=== PATIENT | female | born 1950 | race Caucasian/White ===

== ENCOUNTER → 2017-09-11 14:56 | Outpatient (CLI) | payer MEDICARE, MEDICAID, SELFPAY ==
[2017-09-11 15:20] LABS: Basophils # 0.1 K/mm3 (0-0.2); Basophils % 0.6 % (0.1-2.0); Eosinophils # 0.2 K/mm3 (0.0-0.4); Eosinophils % 1.8 % (0.1-12.0); Hematocrit 45.5 % (37.0-47.0); Hemoglobin 14.2 g/dL (12.2-16.2); Lymphocytes # 2.2 K/mm3 (0.7-4.5); Mean Corpuscular HGB Conc 31.2 g/dL (31.8-35.4); Mean Corpuscular Hemoglobin 30.8 pg (27.0-31.2); Mean Corpuscular Volume 98.5 fl (81-99); Mean Platelet Volume 7.2 fl (7.4-10.4); Monocytes # 0.6 K/mm3 (0.1-1.0); Neutrophils # 6.9 K/mm3 (1.8-7.8); Neutrophils % 69.7 % (37.0-80.0); Platelet Count 215 K/mm3 (142-424); Red Blood Count 4.62 M/mm3 (4.20-5.40); Red Cell Distribution Width 12.8 % (11.5-17.5); White Blood Count 9.9 K/mm3 (4.8-10.8)
--- NOTE | 2017-09-11 15:20 | XR_ITS ---
XR chest 2V HISTORY: ITS.REASON: HTN ORDERING PHYSICIAN: Flip William MD PATIENT AGE: 67 years COMPARISON: 06/22/2012 FINDINGS: Normal heart size. COPD with hyperinflation and hyperlucency. Postsurgical changes right upper lobe. There is some increased density in the right upper lobe medially which could be related to the previous surgery. Calcification is present in the left apex medially there is evidence of old granulomatous disease. There is moderate thoracic scoliosis convex right IMPRESSION: COPD with postsurgical change, no definite acute finding
[2017-09-11 16:12] LABS: Anion Gap 10.9 mEq/L (5-15); Blood Urea Nitrogen 8 mg/dL (7-18); Carbon Dioxide 33 mmol/L (21.0-32.0); Chloride 100 mmol/L (98-107); Creatinine,Serum 0.49 mg/dL (0.55-1.02); Estimated Glomerular Filt Rate 127 ml/min (>60); GFR (African American) 153 ML/MIN (>60); Glucose 94 mg/dL (74-106); Potassium 3.9 mmoL/L (3.5-5.1); Sodium 140 mmol/L (136-145)
== END ==
PROVIDERS: PCP Nurse Practitioner Family; Visit Provider Orthopaedic Surgery
DX: Z01.818 Encounter for other preprocedural examination (principal); S52.531A Colles' fracture of right radius, initial encounter for closed fracture; S52.601A Unspecified fracture of lower end of right ulna, initial encounter for closed fracture
CPT/HCPCS: 36415; 71046; 80048; 85025; 93005

== ENCOUNTER → 2017-09-27 10:39 | Outpatient (CLI) | payer MEDICARE, MEDICAID, SELFPAY ==
--- NOTE | 2017-09-27 10:42 | XR_ITS ---
XR wrist RT min 3V HISTORY follow-up fracture/ORIF ITS.REASON: 2 week post op ORIF RT distal radius ORDERING PHYSICIAN: Flip William MD PATIENT AGE: 67 years COMPARISON: 05/22 and 09/10/2017 FINDINGS: Status post ORIF comminuted distal radial fracture and ulnar fracture. Anterior bone plate is present with multiple screws along with 2 K wires through the ulna into the distal radius. There remains good alignment of fracture fragments. There is a defect in the distal radius dorsally at the fracture site. Fracture lines are still visible. There may be some mild callus formation at the ulnar fracture site. IMPRESSION: IMPRESSION: Good alignment status post ORIF distal radial and ulnar fracture with some developing callus formation at the ulna
== END ==
PROVIDERS: PCP Nurse Practitioner Family; Visit Provider Orthopaedic Surgery
DX: Z48.89 Encounter for other specified surgical aftercare (principal)
CPT/HCPCS: 73110

== ENCOUNTER → 2017-10-11 11:06 | Outpatient (CLI) | payer MEDICARE, MEDICAID, SELFPAY ==
--- NOTE | 2017-10-11 11:12 | XR_ITS ---
XR wrist RT min 3V HISTORY follow-up surgery/ORIF ITS.REASON: s/p right distal radius dos 09/14/17 ORDERING PHYSICIAN: Flip William MD PATIENT AGE: 67 years COMPARISON: 09/27/2017 FINDINGS: Study is obtained through a cast. Anterior bone plate with multiple screws remain in place. 2 K wires are once again noted placed from the medial aspect of the wrist from the distal ulna into the radius. Abundant callus formation is present at the distal radial fracture. Remains good alignment. IMPRESSION: Good alignment status post ORIF radial and ulnar fracture with increasing callus formation
--- NOTE | 2017-10-11 14:59 | XR_ITS ---
XR wrist RT min 3V HISTORY ITS.REASON: postoperative visit/ removal of K wires. ORDERING PHYSICIAN: Flip William MD PATIENT AGE: 67 years COMPARISON: Follow-up fracture and pin removal 10/11/2017 FINDINGS: There has been interval removal of the K wires placed from the ulnar approach. There remains good alignment. Dominant callus formation is present at the ulna. There remains good alignment of the distal radius and ulna with no change in the anterior bone plate. IMPRESSION: Interval removal of 2 K wires good alignment of the ulnar and radial fracture
== END ==
PROVIDERS: PCP Nurse Practitioner Family; Visit Provider Orthopaedic Surgery
DX: Z09 Encounter for follow-up examination after completed treatment for conditions other than malignant neoplasm (principal)
CPT/HCPCS: 73110

== ENCOUNTER → 2017-11-01 13:18 | Outpatient (CLI) | payer MEDICARE, MEDICAID, SELFPAY ==
--- NOTE | 2017-11-01 13:22 | XR_ITS ---
XR wrist RT min 3V HISTORY ITS.REASON: post op, right wrist fx/ out of cast ORDERING PHYSICIAN: Flip William MD PATIENT AGE: 67 years Comparison: 10/11/2017 FINDINGS: Volar bone plate remains in place stabilizing distal radial fracture with good alignment. Fracture line is less visible consistent with healing. Healing distal radial fracture also noted with callus formation nondisplaced. The cast has been removed. IMPRESSION: Healing distal radial and or fracture status post ORIF distal radius
== END ==
PROVIDERS: PCP Nurse Practitioner Family; Visit Provider Orthopaedic Surgery
DX: Z09 Encounter for follow-up examination after completed treatment for conditions other than malignant neoplasm (principal); S52.501D Unspecified fracture of the lower end of right radius, subsequent encounter for closed fracture with routine healing; S52.601D Unspecified fracture of lower end of right ulna, subsequent encounter for closed fracture with routine healing
CPT/HCPCS: 73110

== ENCOUNTER 2017-11-01 13:55 | Outpatient (RCR) | payer MEDICARE, MEDICAID, SELFPAY | END 2017-11-03 15:21 | disposition home or self-care (01) | LOC: OT 13:55 | PROVIDERS: PCP Nurse Practitioner Family; Visit Provider Orthopaedic Surgery | DX: Z09 Encounter for follow-up examination after completed treatment for conditions other than malignant neoplasm (principal) | CPT/HCPCS: 73110; 97760 ==

== ENCOUNTER 2019-04-24 08:30 | Observation (INO) ==
[2019-04-24 08:39] LABS: Microscopic, Urine URINE MICROSCOPIC (MICROSCOPIC)
[2019-04-24 08:41] LABS: Appearance,Urine CLEAR (Clear); Bilirubin,Urine Negative (Negative); Blood, Urine Negative (Negative); Color,Urine YELLOW (Yellow); Glucose,Urine (UA) Negative (Negative); Ketones,Urine TRACE (Negative); Leukocyte Esterase,Urine Negative (Negative); PH,Urine 7.5 (5.0-8.5); Protein,Urine Negative (Negative); Specific Gravity, Urine 1.015 (1.005-1.030); Urobilinogen,Urine 0.2 EU/dl (0.2)
[2019-04-24 08:51] LABS: Amphetamine/Metha Screen,Urine Negative ng/mL (<1000); Barbiturates Screen,Urine Negative ng/mL (<200); Benzodiazepines Screen,Urine Negative ng/mL (<200); Cannabinoid Screen,Urine Negative ng/mL (<50); Cocaine Screen,Urine Negative ng/mL (<300); Methadone Screen,Urine Negative ng/mL (<300); Opiate Screen,Urine Positive ng/mL (<300); Phencyclidine Screen,Urine Negative ng/mL (<25)
[2019-04-24 08:58] LABS: Bacteria,Urine Trace /lpf; Mucus,Urine Trace /lpf; WBC,Urine Occasional #/hpf (0-3)
[2019-04-24 08:59] LABS: Basophils # 0.1 K/mm3 (0-0.2); Basophils % 0.9 % (0.1-2.0); Eosinophils # 0.2 K/mm3 (0.0-0.4); Eosinophils % 1.8 % (0.1-12.0); Hemoglobin 14.3 g/dL (12.2-16.2); Lymphocytes % 12.5 % (10-50); Mean Corpuscular HGB Conc 31.2 g/dL (31.8-35.4); Mean Corpuscular Volume 99.4 fl (81-99); Mean Platelet Volume 7.3 fl (7.4-10.4); Monocytes # 0.5 K/mm3 (0.1-1.0); Monocytes % 5.5 % (1.7-9.3); Neutrophils # 6.6 K/mm3 (1.8-7.8); Neutrophils % 79.3 % (37.0-80.0); Platelet Count 250 K/mm3 (142-424); Red Blood Count 4.63 M/mm3 (4.20-5.40); Red Cell Distribution Width 13.8 % (11.5-17.5); White Blood Count 8.3 K/mm3 (4.8-10.8)
[2019-04-24 09:17] LABS: Alanine Aminotransferase 15 U/L (12-78); Albumin Level 3.6 gm/dL (3.4-5.0); Albumin/Globulin Ratio 0.9 (1.1-1.8); Alkaline Phosphatase 112 U/L (46-116); Anion Gap 10.3 mEq/L (5-15); Aspartate Amino Transferase 29 U/L (15-37); Bilirubin,Total 0.5 mg/dL (0.2-1.0); Blood Urea Nitrogen 12 mg/dL (7-18); Calcium 9.4 mg/dL (8.5-10.1); Carbon Dioxide 31 mmol/L (21.0-32.0); Chloride 101 mmol/L (98-107); Glucose 92 mg/dL (74-106); Salicylate 0.6 mg/dL (2.8-20.0); Sodium 139 mmol/L (136-145); Total Protein,Serum 7.6 gm/dL (6.4-8.2)
[2019-04-24 09:36] LABS: Acetaminophen 0 ug/mL (10-30)
[2019-04-24 09:37] LABS: Ethyl Alcohol < 3 mg/dL (0-99)
--- NOTE | 2019-04-24 10:22 | Emergency Department Note ---
ED Disposition Clinical Impression: Acute delirium COPD (chronic obstructive pulmonary disease) Qualifiers: COPD type: unspecified COPD Qualified Code(s): J44.9 - Chronic obstructive pulmonary disease, unspecified Disposition: Admitted as Observation Condition on Discharge: Fair Instructions: DI for Altered Mental Status Referrals: Provider,Referral, [Primary Care Provider] - - Critical Care Critical Care Time: No Attestation: On 04/24/19, the high probability of a clinically significant, sudden or life threatening deterioration of the following system(s) required my full and direct attention, intervention and personal management. The time I documented below is in addition to time spent performing reported procedures but includes the following listed in this critical care notation. Medical Decision Making - Medical Records Medical records reviewed: Yes: I reviewed the patient's medical records. - Hang Inquiry Pt receiving controlled substance: No Vital Signs: 04/24/19 08:38 04/24/19 10:20 Temperature 98.7 F Temperature Source Rectal Pulse Rate [Right] 80 74 Respiratory Rate 18 Blood Pressure [Right Arm] 160/98 H 189/78 H Blood Pressure Mean [Right Arm] 118 115 Blood Pressure Source [Right Arm] Automatic Cuff Blood Pressure Position [Right Arm] Sitting Sitting 02 Sat by Pulse Oximetry 95 95 Oxygen Delivery Method Room Air Room Air - Lab Data Lab results reviewed: Yes: I reviewed the patient's lab results. Lab Results 04/24/19 08:30: Urine Color Yellow, Urine Appearance Clear, Urine pH 7.5, Ur Specific [place] 1.015, Urine Protein Negative, Urine Glucose (UA) Negative, Urine Ketones Trace, Urine Blood Negative, Urine Nitrate Negative, Urine Bilirubin Negative, Urine Urobilinogen 0.2, Ur Leukocyte Esterase Negative, Urine WBC Occasional, Ur Squamous Epith Cells 3-5, Urine Bacteria Trace, Urine Mucus Trace 04/24/19 08:30: Urine Opiates Screen Positive H, Urine Methadone Screen Negative, Ur Barbituates Screen Negative, Ur Phencyclidine Scrn Negative, Ur Amphetamines Screen Negative, U Benzodiazepines Scrn Negative, Urine Cocaine Screen Negative, U Marijuana (THC) Screen Negative 04/24/19 08:46: WBC 8.3, RBC 4.63, Hgb 14.3, Hct 46.0, MCV 99.4 H, MCH 31.0, MCHC 31.2 L, RDW 13.8, Plt Count 250, MPV 7.3 L, Neut % (Auto) 79.3, Lymph % (Auto) 12.5, [place] % (Auto) 5.5, Eos % (Auto) 1.8, Baso % (Auto) 0.9, Neut # (Auto) 6.6, Lymph # (Auto) 1.0, [place] # (Auto) 0.5, Eos # (Auto) 0.2, Baso # (Auto) 0.1 04/24/19 08:46: Sodium 139, Potassium 3.3 L, Chloride 101, Carbon Dioxide 31, Anion Gap 10.3, BUN 12, Creatinine 0.48 L, Estimated Creat Clear 35, Estimated GFR 129, Est GFR ( Amer) 156, Glucose 92, Calcium 9.4, Total Bilirubin 0.5, AST 29, ALT 15, Alkaline Phosphatase 112, Troponin I < 0.02, Total Protein 7.6, Albumin 3.6, Globulin 4.0 H, Albumin/Globulin Ratio 0.9 L, Salicylates 0.6 L, Acetaminophen 0 L, Plasma/Serum Alcohol < 3 04/24/19 08:46: Lactate 0.6 04/24/19 10:30: Specimen Source R radial, O2 % Room air, ABG pH 7.43, ABG pCO2 47.9 H, ABG pO2 66.8 L, ABG HCO3 30.9 H, ABG Total CO2 32.3 H, ABG O2 Saturation 93, ABG Base Excess 6.5 H, Coleman Test Acceptable Result diagrams: 04/24/19 08:46 04/24/19 08:46 Orders (Tests/Meds): ORDERS Category Date Time Status Blood Culture Stat Micro 04/24/19 08:46 Received - Radiology Data #1 Image(s): Chest Image Reviewed: Yes I reviewed the patient's radiology image Preliminary Findings: Normal/NAD - CT Data CT Scan: Head Time Received: 11:[address] Reviewed: Yes: I have viewed the radiologist's interpretation Preliminary Findings: Abnormal - ECG Data Tracing #1 Normal Sinus Rhythm: Yes Ischemic changes: non-specific ST-T wave changes - Physician Consults Physician Consulted: alen Reason -: Admission Altered Mental Status HPI - General Chief Complaint: Altered Mental Status Stated Complaint: Neighbors reported pt was severely confused Time Seen by Provider: 04/24/19 08:50 Mode of Arrival: EMS Source of Information: Patient, EMS, Medical Record Limitations: Altered Mental Status Description of Symptoms (Recalled from ER Triage Doc. by RN): EMS reports that patient was found wandering around her apartment complex knocking on doors and talking out of her head. - History of Present Illness HPI narrative: pt with confusion which was noted today and not related to trauma and no fever or rash - daughter reports this is different for her mother and concerned could be meds - no depression reported MD complaint: altered mental status Onset (ago): hour(s) Severity: moderate Consistency of symptoms: waxing and waning Context: drug abuse, COPD Associated symptoms: denies other symptoms - Related Data Home Medications Medication Instructions Recorded Confirmed Albuterol Sulfate [Albuterol 2 puffs INHALATION Q4H 04/24/19 04/24/19 Sulfate Hfa] Amlodipine Besylate 1 tab PO DAILY 04/24/19 04/24/19 Doxycycline Hyclate [Vibra-Tab 1 tab PO BID 04/24/19 04/24/19 100mg tablet] Duloxetine HCl 1 tab PO DAILY 04/24/19 04/24/19 Fluticasone/Umeclidin/Vilanter 1 puff INHALATION DAILY 04/24/19 04/24/19 [Trelegy Ellipta 100-62.5-25] Gabapentin [Gabapentin 300mg Cap] 600 mg PO TID 04/24/19 04/24/19 Tizanidine HCl 1 tab PO DAILY 04/24/19 04/24/19 Allergies Allergy/AdvReac Type Severity Reaction Status Date / Time No Known Drug Allergies AdvReac Verified 10/11/17 13:23 [facility] History - Hepatitis A Screen Drug use history?: Yes High risk sexual behaviors?: No History of sexually transmitted infection?: No Currently employed?: No Childcare worker?: No Do you have indoor plumbing?: Yes Do you have electricity?: Yes Attestation statement:: This patient has been screened for Hepatitis A risk factors. I have reviewed the patient's past medical history: Yes Medical History: Reports:: Chronic Obstructive Pulmonary Disease (COPD), Hypertension Denies:: Cancer, Diabetes Mellitus Type 1, Diabetes Mellitus Type 2, Internal Pacemaker, MRSA, Seizures Other Medical History: Denies: Blood Transfusion Reaction Laterality Cases: Bilateral: Other Other Surgeries: Yes: , Hernia Repair, Hysterectomy-Total. No: Pacemaker Amputation: No Fractures: Yes - Social History Smoking Status: Current every day smoker Tobacco Type: cigarettes # Packs/Day (cigarettes): 1 Alcohol Intake: current Substance Use Type: marijuana Occupational Status: disabled Housing: house Household Members: family Family Hx:: No significant family history, Cancer ROS Obtained: Yes All systems reviewed & no additional complaints - Constitutional Constitutional: Denies fever(s), Reports weakness - Eyes Eyes: Denies change in vision - ENT Ears, Nose, Mouth, and Throat: Denies dizziness, Denies headache(s), Denies sore throat - Cardiovascular Cardiovascular: Denies chest pain, Denies dyspnea - Respiratory Respiratory: Yes as per HPI, Yes cough, Yes non-productive cough - Gastrointestinal Gastrointestingal: Denies: vomiting - Genitourinary Female Genitourinary: Denies hematuria - Musculoskeletal Musculoskeletal: Denies joint pain, Denies joint swelling - Integumentary/Breasts Skin/Breast: Denies rash - Neurologic Neurologic: Reports as per HPI, Denies abnormal speech, Denies focal weakness, Denies headache(s), Denies seizure-like activity Physical Exam - General General appearance: alert, other (confused) - Head Head exam: normocephalic - Eye Eye exam: Present: PERRL, EOMI. Absent: scleral icterus, nystagmus - ENT ENT exam: Present: mucous membranes dry - Neck Neck exam: Present: trachea midline. Absent: meningismus - Respiratory Respiratory exam: Present: wheezes. Absent: respiratory distress - Cardiovascular Cardiovascular exam: Present: regular rate, systolic murmur, +S4 - Abdominal Exam Abdominal exam: Present: soft - Extremities Exam Extremities exam: Present: full ROM - Neurological Exam Neurological exam: Present: alert, CN II-XII intact, normal gait, other (no focal changes ). Absent: motor sensory deficit - Psychiatric Psychiatric exam: Present: other (confused) - Skin Skin exam: Absent: rash
[2019-04-24 10:51] LABS: ABG Base Excess 6.5 mmol/L (-2.4-2.3); ABG HCO3 30.9 mmhg (22.0-26.0); ABG Oxygen Saturation 93 % (90-100); ABG PCO2 47.9 mmhg (35.0-45.0); ABG PH 7.43 mmol/L (7.35-7.45); ABG PO2 66.8 mmhg (80-100); ABG TCO2 32.3 mmhg (23-27)
[2019-04-24 10:56] LABS: Allen's Test ACCEPTABLE; Oxygen ROOM AIR %
--- NOTE | 2019-04-24 13:11 | History & Physical Report ---
*Admission Date: 04/24/19 *Chief complaint: AMS *History of present illness: Ms. Quesada 69-year-old female who was brought to [facility] via EMS after found wandering outside in her neighborhood knocking on doors. She was talking out of her head. As per ER note her confusion was not felt to be related to trauma, fever, or injury. Her daughter reported that this behavior was different she was concerned that it might be her meds. Evaluation in the emergency room incuded a urine drug screen which was positive for opiates. She continued to be confused and was admitted for further evaluation and treatment. CT the head showed no acute changes. At the time of this exam patient denies any pain. She states she is always short of breath and is at baseline. She is disoriented and pleasantly confused. [facility] History Medical History: Reports:: Chronic Obstructive Pulmonary Disease (COPD), Depression, Gastroesophageal Reflux Disease(GERD), Hypertension Denies:: Cancer, Diabetes Mellitus Type 1, Diabetes Mellitus Type 2, Internal Pacemaker, MRSA, Seizures *Have you ever received a pneumonia vaccine?: Yes *Have you received a flu vaccine this season?: Yes Other Medical History: Denies: Blood Transfusion Reaction Laterality Cases: Bilateral: Other Other Surgeries: Yes: , Hernia Repair, Hysterectomy-Total, Other. No: Pacemaker Amputation: No Fractures: Yes (rt wrist) - *Social History Educational Level: Completed High School Smoking Status: Current every day smoker Tobacco Type: cigarettes # Packs/Day (cigarettes): 1 Alcohol Intake: former Substance Use Type: marijuana *Occupational Status:: retired Housing: apartment Household Members: none *Travel in the last 8 weeks: None Family Hx:: Cancer, Diabetes Review of Systems - Constitutional Denies fever(s) - Eyes Denies change in vision - ENT Denies ear pain, Denies headache(s), Denies nasal congestion, Denies sore throat - *Cardiovascular Reports shortness of breath, Reports leg swelling, Denies chest pain Comments: is at her baseline - *Respiratory Reports cough, Reports shortness of breath, Denies change in phlegm color, Denies chest congestion, Denies coughing up blood - *Gastrointestinal Denies abdominal pain, Denies constipation, Denies cramping, Denies vomiting blood, Denies nausea, Denies vomiting - *Genitourinary Denies difficulty urinating - *Musculoskeletal Denies abnormal walking - *Neurologic Reports weakness, Denies abnormal speech, Denies seizure-like activity, Denies dizziness, Denies localized weakness, Denies headache(s), Denies seizure-like activity Meds Home Medications Medication Instructions Recorded Confirmed Type Albuterol Sulfate [Albuterol 2.5 mg IH Q4HWA 04/24/19 04/24/19 History 0.083% 2.5mg/3mL neb] Albuterol Sulfate [Albuterol 2 puffs INHALATION Q4H 04/24/19 04/24/19 History Sulfate Hfa] Amlodipine Besylate 1 tab PO DAILY 04/24/19 04/24/19 History Duloxetine HCl 1 tab PO DAILY 04/24/19 04/24/19 History Fluticasone/Umeclidin/Vilanter 1 puff INHALATION DAILY 04/24/19 04/24/19 History [Trelegy Ellipta 100-62.5-25] Gabapentin [Gabapentin 300mg Cap] 300 mg PO TID 04/24/19 04/24/19 History Tizanidine HCl 1 tab PO DAILY PRN 04/24/19 04/24/19 History Allergies Allergy/AdvReac Type Severity Reaction Status Date / Time No Known Drug Allergies AdvReac Verified 10/11/17 13:23 Exam Vital signs and Labs for Last 24 Hours: Temp Pulse Resp BP Pulse Ox 97.5 F L 80 18 159/78 H 96 04/24/19 12:38 04/24/19 12:38 04/24/19 12:38 04/24/19 12:38 04/24/19 12:38 Laboratory Results - last 24 hr 04/24/19 08:30: Urine Color Yellow, Urine Appearance Clear, Urine pH 7.5, Ur Specific [place] 1.015, Urine Protein Negative, Urine Glucose (UA) Negative, Urine Ketones Trace, Urine Blood Negative, Urine Nitrate Negative, Urine Bilirubin Negative, Urine Urobilinogen 0.2, Ur Leukocyte Esterase Negative, Urine WBC Occasional, Ur Squamous Epith Cells 3-5, Urine Bacteria Trace, Urine Mucus Trace 04/24/19 08:30: Urine Opiates Screen Positive H, Urine Methadone Screen Negative, Ur Barbituates Screen Negative, Ur Phencyclidine Scrn Negative, Ur Amphetamines Screen Negative, U Benzodiazepines Scrn Negative, Urine Cocaine Screen Negative, U Marijuana (THC) Screen Negative 04/24/19 08:46: WBC 8.3, RBC 4.63, Hgb 14.3, Hct 46.0, MCV 99.4 H, MCH 31.0, MCHC 31.2 L, RDW 13.8, Plt Count 250, MPV 7.3 L, Neut % (Auto) 79.3, Lymph % (Auto) 12.5, [place] % (Auto) 5.5, Eos % (Auto) 1.8, Baso % (Auto) 0.9, Neut # (Auto) 6.6, Lymph # (Auto) 1.0, [place] # (Auto) 0.5, Eos # (Auto) 0.2, Baso # (Auto) 0.1 04/24/19 08:46: Sodium 139, Potassium 3.3 L, Chloride 101, Carbon Dioxide 31, Anion Gap 10.3, BUN 12, Creatinine 0.48 L, Estimated Creat Clear 35, Estimated GFR 129, Est GFR ( Amer) 156, Glucose 92, Calcium 9.4, Total Bilirubin 0.5, AST 29, ALT 15, Alkaline Phosphatase 112, Troponin I < 0.02, Total Protein 7.6, Albumin 3.6, Globulin 4.0 H, Albumin/Globulin Ratio 0.9 L, Salicylates 0.6 L, Acetaminophen 0 L, Plasma/Serum Alcohol < 3 04/24/19 08:46: Lactate 0.6 04/24/19 10:30: Specimen Source R radial, O2 % Room air, ABG pH 7.43, ABG pCO2 47.9 H, ABG pO2 66.8 L, ABG HCO3 30.9 H, ABG Total CO2 32.3 H, ABG O2 Saturation 93, ABG Base Excess 6.5 H, Coleman Test Acceptable I & O for Last 24 hours: Intake & Output 04/22/19 04/23/19 04/24/19 04/25/19 11:59 11:59 11:59 11:59 Weight 90 lb 95 lb 6 oz Radiology Reports for the Last 24 Hours: 04/24/19 CXR IMPRESSION: No acute findings. COPD with chronic changes. Please see above for detail. 04/24/10 CT head IMPRESSION: 1. No acute intracranial finding. 2. Right frontal parietal calcified meningioma without mass effect - Constitutional no acute distress, thin Comments: sitting on the side of the bed and is breathing easily and appears comfortable - *Routine HEENT Exam Head: Present: normocephalic, atraumatic Eye: Present: EOMI, PERRL. Absent: conjunctival icterus, scleral injection ENT: Present: mucous membranes moist, oropharynx clear - *Routine Neck Exam Present: supple, full ROM. Absent: carotid bruit, lymphadenopathy, thyromegaly - *Routine Respiratory Exam Present: CTA bilaterally (A&P) Comments: congested cough - *Routine Cardiovascular Exam Present: RRR - *Routine Abdominal Exam Present: soft, normoactive bowel sounds. Absent: tenderness, distended - *Routine Extremities Exam Absent: edema, calf tenderness - *Routine Neurological Exam Present: alert (pleasantly disoriented), altered mental status, moving all extremities, normal speech. Absent: facial asymmetry Assessment and Plan (1) Finding of opiate drug in blood Current visit: Yes Status: Acute Category: Medical Code(s): R78.1 - Finding of opiate drug in blood (2) Acute delirium Current visit: Yes Status: Acute Category: Medical Code(s): R41.0 - Disorientation, unspecified (3) COPD (chronic obstructive pulmonary disease) Current visit: Yes Status: Acute Qualifiers: COPD type: unspecified COPD Qualified Code(s): J44.9 - Chronic obstructive pulmonary disease, unspecified Category: Medical Code(s): J44.9 - Chronic obstructive pulmonary disease, unspecified (4) HTN (hypertension) Current visit: Yes Status: Acute Category: Medical Code(s): I10 - Essential (primary) hypertension (5) Hypokalemia Current visit: Yes Status: Acute Category: Medical Code(s): E87.6 - Hypokalemia - Assessment and plan all Dx Assessment and Plan for all problems:: duoneb; IVF; encourage PO fluids. PO KCL.
--- NOTE | 2019-04-24 14:47 | Pharmacy Consult Notes ---
[facility] Pharmacy VTE Monitoring - Patient Demographics Admission date: 04/24/19 Report Date: 04/24/19 Time: 14:47 Allergies/Adverse Reactions: Patient Allergies No Known Drug Allergies Adverse Reaction (Verified 10/11/17 13:23) Height: 1.7 m Weight: 43.261 kg Patient Problems: Current Active Problems Acute delirium (Acute) COPD (chronic obstructive pulmonary disease) (Acute) Finding of opiate drug in blood (Acute) HTN (hypertension) (Acute) Hypokalemia (Acute) - VTE Risk Labs: VTE Related Lab Results Hgb 14.3 g/dL (12.2-16.2) 04/24/19 08:46 Hct 46.0 % (37.0-47.0) 04/24/19 08:46 Plt Count 250 K/mm3 (142-424) 04/24/19 08:46 BUN 12 mg/dL (7-18) 04/24/19 08:46 Creatinine 0.48 mg/dL (0.55-1.02) L 04/24/19 08:46 Estimated Creat Clear 35 mL/min (50-200) 04/24/19 08:46 Was VTE Risk Assessment Performed: Yes VTE Risk Level: Low Risk - Prophylaxis VTE Prophylaxis Ordered?: Yes Types of VTE Prophylaxis: TEDS Knee High Location of Applied Device: Bilateral Lower Extremeties
[2019-04-25 06:38] LABS: Basophils # 0.1 K/mm3 (0-0.2); Basophils % 0.9 % (0.1-2.0); Eosinophils # 0.2 K/mm3 (0.0-0.4); Eosinophils % 2.9 % (0.1-12.0); Hematocrit 39.7 % (37.0-47.0); Lymphocytes # 1.3 K/mm3 (0.7-4.5); Lymphocytes % 17.8 % (10-50); Mean Corpuscular HGB Conc 31.4 g/dL (31.8-35.4); Mean Corpuscular Volume 97.9 fl (81-99); Mean Platelet Volume 7.5 fl (7.4-10.4); Monocytes # 0.5 K/mm3 (0.1-1.0); Monocytes % 6.8 % (1.7-9.3); Neutrophils # 5.4 K/mm3 (1.8-7.8); Neutrophils % 71.6 % (37.0-80.0); Platelet Count 241 K/mm3 (142-424); Red Blood Count 4.05 M/mm3 (4.20-5.40); Red Cell Distribution Width 14.2 % (11.5-17.5); White Blood Count 7.5 K/mm3 (4.8-10.8)
[2019-04-25 06:48] LABS: Anion Gap 6.6 mEq/L (5-15); Calcium 8.5 mg/dL (8.5-10.1)
[2019-04-25 06:59] LABS: Hemoglobin 12.5 g/dL (12.2-16.2)
--- NOTE | 2019-04-25 08:42 | Progress Note ---
Internal Medicine - PN: Subj *Date: 04/25/19 *Time: 08:39 Interval history: Patient is much more awake and alert today. She states she remembers the incident and she was trying to hurt herself so she took an overdose of 900 mg of gabapentin. She states she has felt depressed lately. Her primary physician had put her on Cymbalta, but it did not seem like it worked. She stopped taking it approximately 3 months ago. She states she does not feel like hurting herself at this time. She does want to be discharged home on some type of antidepressant. Exam Vital signs and Labs for Last 24 Hours: Temp Pulse Resp BP Pulse Ox 98.2 F 84 17 174/86 H 95 04/25/19 08:00 04/25/19 08:00 04/25/19 08:00 04/25/19 08:00 04/25/19 08:00 Laboratory Results - last 24 hr 04/24/19 08:30: Urine Color Yellow, Urine Appearance Clear, Urine pH 7.5, Ur Specific Hessel 1.015, Urine Protein Negative, Urine Glucose (UA) Negative, Urine Ketones Trace, Urine Blood Negative, Urine Nitrate Negative, Urine Bilirubin Negative, Urine Urobilinogen 0.2, Ur Leukocyte Esterase Negative, Urine WBC Occasional, Ur Squamous Epith Cells 3-5, Urine Bacteria Trace, Urine Mucus Trace 04/24/19 08:30: Urine Opiates Screen Positive H, Urine Methadone Screen Negative, Ur Barbituates Screen Negative, Ur Phencyclidine Scrn Negative, Ur Amphetamines Screen Negative, U Benzodiazepines Scrn Negative, Urine Cocaine Screen Negative, U Marijuana (THC) Screen Negative 04/24/19 08:46: WBC 8.3, RBC 4.63, Hgb 14.3, Hct 46.0, MCV 99.4 H, MCH 31.0, MCHC 31.2 L, RDW 13.8, Plt Count 250, MPV 7.3 L, Neut % (Auto) 79.3, Lymph % (Auto) 12.5, Amelia % (Auto) 5.5, Eos % (Auto) 1.8, Baso % (Auto) 0.9, Neut # (Auto) 6.6, Lymph # (Auto) 1.0, Amelia # (Auto) 0.5, Eos # (Auto) 0.2, Baso # (Auto) 0.1 04/24/19 08:46: Sodium 139, Potassium 3.3 L, Chloride 101, Carbon Dioxide 31, Anion Gap 10.3, BUN 12, Creatinine 0.48 L, Estimated Creat Clear 35, Estimated GFR 129, Est GFR ( Amer) 156, Glucose 92, Calcium 9.4, Total Bilirubin 0.5, AST 29, ALT 15, Alkaline Phosphatase 112, Troponin I < 0.02, Total Protein 7.6, Albumin 3.6, Globulin 4.0 H, Albumin/Globulin Ratio 0.9 L, Salicylates 0.6 L, Acetaminophen 0 L, Plasma/Serum Alcohol < 3 04/24/19 08:46: Lactate 0.6 04/24/19 10:30: Specimen Source R radial, O2 % Room air, ABG pH 7.43, ABG pCO2 47.9 H, ABG pO2 66.8 L, ABG HCO3 30.9 H, ABG Total CO2 32.3 H, ABG O2 Saturation 93, ABG Base Excess 6.5 H, Coleman Test Acceptable 04/25/19 05:50: WBC 7.5, RBC 4.05 L, Hgb 12.5 D, Hct 39.7, MCV 97.9, MCH 30.7, MCHC 31.4 L, RDW 14.2, Plt Count 241, MPV 7.5, Neut % (Auto) 71.6, Lymph % (Auto) 17.8, Amelia % (Auto) 6.8, Eos % (Auto) 2.9, Baso % (Auto) 0.9, Neut # (Auto) 5.4, Lymph # (Auto) 1.3, Amelia # (Auto) 0.5, Eos # (Auto) 0.2, Baso # (Auto) 0.1 04/25/19 05:50: Sodium 136, Potassium 3.6, Chloride 104, Carbon Dioxide 29, Anion Gap 6.6, BUN 9, Creatinine 0.42 L, Estimated Creat Clear 38, Estimated GFR 150, Est GFR ( Amer) 182, Glucose 78, Calcium 8.5, Magnesium 2.0 I & O for Last 24 hours: Intake & Output 04/22/19 04/23/19 04/24/19 04/25/19 11:59 11:59 11:59 11:59 Intake Total 1412 / 1412 Output Total 650 / 650 Balance 762 / 762 Weight 90 lb 97 lb 3 oz - Constitutional no acute distress - *Routine Respiratory Exam Present: CTA bilaterally - *Routine Cardiovascular Exam Present: RRR - *Routine Abdominal Exam Present: soft, normoactive bowel sounds. Absent: tenderness - *Routine Extremities Exam Absent: cyanosis, clubbing, edema - *Routine Skin Exam Present: warm. Absent: rash - *Routine Neurological Exam Present: alert, oriented X3 Assessment and Plan (1) Finding of opiate drug in blood Current visit: Yes Status: Acute Category: Medical Code(s): R78.1 - Finding of opiate drug in blood (2) Acute delirium Current visit: Yes Status: Acute Category: Medical Code(s): R41.0 - Disorientation, unspecified (3) COPD (chronic obstructive pulmonary disease) Current visit: Yes Status: Acute Qualifiers: COPD type: unspecified COPD Qualified Code(s): J44.9 - Chronic obstructive pulmonary disease, unspecified Category: Medical Code(s): J44.9 - Chronic obstructive pulmonary disease, unspecified (4) HTN (hypertension) Current visit: Yes Status: Acute Category: Medical Code(s): I10 - Essential (primary) hypertension (5) Hypokalemia Current visit: Yes Status: Acute Category: Medical Code(s): E87.6 - Hypokalemia - Assessment and plan all Dx Assessment and Plan for all problems:: Can likely be discharged home today. Will discuss with Dr. orozco as well as the addition of an antidepressant upon discharge.
--- NOTE | 2019-04-25 14:29 | Discharge Summary ---
General - General Admission date:: 04/24/19 Discharge date: 04/25/19 HPI HPI: Ms. Quesada 69-year-old female who was brought to [facility] via EMS after found wandering outside in her neighborhood knocking on doors. She was talking out of her head. As per ER note her confusion was not felt to be related to trauma, fever, or injury. Her daughter reported that this behavior was different she was concerned that it might be her meds. Evaluation in the emergency room included a urine drug screen which was positive for opiates. She continued to be confused and was admitted for further evaluation and treatment. CT the head showed no acute changes. At the time of this exam patient denies any pain. She states she is always short of breath and is at baseline. She is disoriented and pleasantly confused. Hospital Course Hospital Course: The patient's initial chest x-ray showed COPD. Her head CT showed a right frontal parietal calcified meningioma without mass-effect and no acute intracranial findings. The patient was admitted and started on IV fluids and duo nebs as well as some potassium supplementation. By 04/25/2019, the patient was feeling much better. She did remember the incident of the previous day. She states she was trying to take an overdose of gabapentin in order to harm herself. She took approximately 900 mg of gabapentin. She states she had been depressed lately and her primary care physician had placed her on Cymbalta, however it did not seem like it was working so she stopped it. She wanted to be discharged home on some type of an antidepressant. Dr. Ramirez did see the patient and suggested she contact her family physician today to arrange for follow-up after discharge. She was discharged home on 50 mg of sertraline. Objective Vital signs: Temp Pulse Resp BP Pulse Ox 98.2 F 84 17 174/86 H 95 04/25/19 08:00 04/25/19 08:00 04/25/19 08:00 04/25/19 08:00 04/25/19 08:00 Narrative: - Constitutional no acute distress, thin Comments: sitting on the side of the bed and is breathing easily and appears comfortable - *Routine HEENT Exam Head: Present: normocephalic, atraumatic Eye: Present: EOMI, PERRL. Absent: conjunctival icterus, scleral injection ENT: Present: mucous membranes moist, oropharynx clear - *Routine Neck Exam Present: supple, full ROM. Absent: carotid bruit, lymphadenopathy, thyromegaly - *Routine Respiratory Exam Present: CTA bilaterally (A&P) Comments: congested cough - *Routine Cardiovascular Exam Present: RRR - *Routine Abdominal Exam Present: soft, normoactive bowel sounds. Absent: tenderness, distended - *Routine Extremities Exam Absent: edema, calf tenderness - *Routine Neurological Exam Present: alert (pleasantly disoriented), altered mental status, moving all extremities, normal speech. Absent: facial asymmetry Results Labs on day of discharge: Labs from last 24 hours 04/25/19 04/25/19 05:50 05:50 WBC 7.5 RBC 4.05 L Hgb 12.5 D Hct 39.7 MCV 97.9 MCH 30.7 MCHC 31.4 L RDW 14.2 Plt Count 241 MPV 7.5 Neut % (Auto) 71.6 Lymph % (Auto) 17.8 Cole % (Auto) 6.8 Eos % (Auto) 2.9 Baso % (Auto) 0.9 Neut # (Auto) 5.4 Lymph # (Auto) 1.3 Cole # (Auto) 0.5 Eos # (Auto) 0.2 Baso # (Auto) 0.1 Sodium 136 Potassium 3.6 Chloride 104 Carbon Dioxide 29 Anion Gap 6.6 BUN 9 Creatinine 0.42 L Estimated Creat Clear 38 Estimated GFR 150 Est GFR ( Amer) 182 Glucose 78 Calcium 8.5 Magnesium 2.0 DS: Diagnosis - Discharge Diagnosis (1) Finding of opiate drug in blood Status: Acute (2) Acute delirium Status: Acute (3) COPD (chronic obstructive pulmonary disease) Status: Acute (4) HTN (hypertension) Status: Acute (5) Hypokalemia Status: Acute Discharge Plan - Patient Discharge Instructions ACTIVITY: Continue current activity DIET: advance to your usual diet Patient Instructions: Delirium, DI for Chronic Obstructive Pulmonary Disease - Follow up Plan Follow up with: Marvin Richard [Referring] - Disposition: Home, Self-Retirement Medications: Home Medications Medication Instructions Recorded Confirmed Type Albuterol Sulfate [Albuterol 2.5 mg IH Q4HWA 04/24/19 04/24/19 History 0.083% 2.5mg/3mL neb] Albuterol Sulfate [Albuterol 2 puffs INHALATION Q4H 04/24/19 04/24/19 History Sulfate Hfa] Amlodipine Besylate 10 mg PO DAILY 04/24/19 04/24/19 History Fluticasone/Umeclidin/Vilanter 1 puff INHALATION DAILY 04/24/19 04/24/19 History [Trelegy Ellipta 100-62.5-25] Nicotine [Nicoderm 21mg/24hr 21 mg TD DAILYP PRN #30 patch.td24 04/25/19 Rx patch] Sertraline HCl [Zoloft 50mg tablet] 50 mg PO DAILY #30 tab 04/25/19 Rx Prescriptions/Medication Reconciliation: New Nicotine [Nicoderm 21mg/24hr patch] 21 mg TD DAILYP PRN #30 patch.td24 PRN Reason: Nicotine Cravings Sertraline HCl [Zoloft 50mg tablet] 50 mg PO DAILY #30 tab Continued Fluticasone/Umeclidin/Vilanter [Trelegy Ellipta 100-62.5-25] 1 puff INHALATION DAILY Amlodipine Besylate 10 mg PO DAILY Albuterol Sulfate [Albuterol Sulfate Hfa] 2 puffs INHALATION Q4H Albuterol Sulfate [Albuterol 0.083% 2.5mg/3mL neb] 2.5 mg IH Q4HWA Discontinued Gabapentin [Gabapentin 300mg Cap] 300 mg PO TID Duloxetine HCl 60 mg PO DAILY Tizanidine HCl 4 mg PO DAILYP PRN PRN Reason: pain - Problem Reconciliation Problems Reviewed?: Yes
--- NOTE | 2019-04-26 08:13 | Electrocardiograph Report ---
APPROVED REPORT Exam: Resting ECG HR:71 bpm ECG Measurements Heart Rate 71 AXES CO 152 P 78 QRSd 62 QRS 83 QT 424 T87 QTc 460 <Conclusion> Normal sinus rhythm with sinus arrhythmia Normal ECG Electronically signed by : Dennis Benton, 04/26/2019 08:13:20
== END 2019-04-25 11:48 | disposition home or self-care (01) ==
LOC: 2ND 08:30 → ER 08:30 → 2ND 12:38
PROVIDERS: ADMIT Family Medicine; ATTEND Family Medicine
DX: J44.9 Chronic obstructive pulmonary disease, unspecified; Z79.51 Long term (current) use of inhaled steroids; I10 Essential (primary) hypertension; T42.6X2A Poisoning by other antiepileptic and sedative-hypnotic drugs, intentional self-harm, initial encounter; Z72.0 Tobacco use; R41.0 Disorientation, unspecified; E87.6 Hypokalemia
CPT/HCPCS: 36415; 70450; 71020; 71046; 80048; 80053; 80305; 80329; 81001; 82803; 83605; 83735; 84484; 85025; 87040; 93005; 94640; 99285; G0378